=== PATIENT | female | born 1930 | race Caucasian/White ===

== ENCOUNTER → 2017-01-17 | Outpatient (CLI) | payer OTHER ==
[2017-01-17 08:21] LABS: BASOPHILS # (AUTO) 0.06 10*3/UL; BASOPHILS % (AUTO) 1.4 % (0-1); HEMATOCRIT 35.8 % (37.0-47.0); HEMOGLOBIN 11.5 g/dL (12.0-16.0); IMM GRAN % (AUTO) 0 % (0-5); IMM GRAN# (AUTO) 0 10*3/UL; LYMPHOCYTES # (AUTO) 2.05 10*3/uL; LYMPHOCYTES % (AUTO) 46.7 % (10-50); MEAN CORPUSCULAR HEMOGLOBIN 29.6 PG (27-31); MEAN CORPUSCULAR HGB CONC 32.1 g/dL (33-37); MEAN PLATELET VOLUME 9.1 FL (7.4-12.2); MONOCYTES # (AUTO) 0.55 10*3/UL (0.3-0.8); MONOCYTES % (AUTO) 12.5 % (5-15); NEUTROPHILS % (AUTO) 36.4 % (50-80); RDW COEFFICIENT OF VARIATION 18.1 % (11.5-14.5); RED BLOOD COUNT 3.89 10^6/uL (4.20-5.40); WHITE BLOOD COUNT 4.39 10^3/uL (4.8-10.8)
[2017-01-17 08:24] LABS: PLATELET MORPHOLOGY COMMENT NORMAL MORPHOLOGY (NORM)
[2017-01-17 08:29] LABS: BILIRUBIN,TOTAL 0.8 mg/dL (0.3-1.2); BUN/CREATININE RATIO 25.55 (6-20); CALCIUM 9.1 mg/dL (8.7-10.7); CREATININE 0.9 mg/dL (0.50-1.20); LDL CHOLESTEROL,CALCULATED 128.8 mg/dL; POTASSIUM 4.2 meq/L (3.8-5.2); TOTAL PROTEIN 7.3 g/dL (6.1-8.0)
[2017-01-17 09:42] LABS: FREE T4 (FREE THYROXINE) 1.94 ng/dL (0.93-1.71)
== END ==
LOC: LAB 07:27
PROVIDERS: ATTEND Internal Medicine
DX: E03.9 Hypothyroidism, unspecified (principal); I10 Essential (primary) hypertension; K21.0 Gastro-esophageal reflux disease with esophagitis; I44.1 Atrioventricular block, second degree
CPT/HCPCS: 36415; 80053; 80061; 84439; 84443; 85025

== ENCOUNTER → 2017-01-18 | Outpatient (CLI) | payer OTHER | LOC: MMPC 11:11 | PROVIDERS: ATTEND Internal Medicine | DX: F02.81 Dementia in other diseases classified elsewhere, unspecified severity, with behavioral disturbance (principal); G30.1 Alzheimer's disease with late onset; D64.9 Anemia, unspecified; I10 Essential (primary) hypertension; Z95.0 Presence of cardiac pacemaker; Z23 Encounter for immunization | CPT/HCPCS: 90732; 99214; G0463 ==

== ENCOUNTER → 2017-02-14 | Outpatient (CLI) | payer OTHER ==
[2017-02-14 19:02] LABS: FREE T4 (FREE THYROXINE) 1.17 ng/dL (0.93-1.71)
== END ==
LOC: LAB 17:19
PROVIDERS: ATTEND Internal Medicine
DX: I10 Essential (primary) hypertension (principal); R41.3 Other amnesia
CPT/HCPCS: 36415; 84439; 84443

== ENCOUNTER → 2017-03-15 | Outpatient (CLI) | payer OTHER | LOC: LAB 11:04 | PROVIDERS: ATTEND Internal Medicine | DX: E03.9 Hypothyroidism, unspecified (principal) | CPT/HCPCS: 36415; 84443 ==